=== PATIENT | male | born 1945 | race Hispanic/Latino ===

== ENCOUNTER 2022-09-09 09:50 | Inpatient (IN) | payer MEDICARE ==
[~2022-09-09] VITALS: Ht 172.7 cm; Wt 70.3 kg
[2022-09-09] MEDS ORDERED: LACTATED RINGERS 1000ML 1,000 ML IV ONE (10:30)
[2022-09-09] MEDS ORDERED: MECLIZINE HCL 25 MG TABLET PO ONE (10:30)
[2022-09-09 10:35] LABS: HEMATOCRIT 41.2 % (42-54); MEAN CORPUSCULAR HEMOGLOBIN 29.9 pg (27.0-33.0); MEAN CORPUSCULAR HGB CONC 34.5 g/dL (32.0-36.0); MEAN CORPUSCULAR VOLUME 86.7 fL (79-99); PLATELET COUNT (AUTO) 133 K/uL (130-400); RED BLOOD CELL COUNT(AUTO) 4.75 MIL/uL (4.50-6.20); RED CELL DISTRIBUTION WIDTH 13.4 % (11.0-15.5); WHITE BLOOD COUNT (AUTO) 8.8 K/uL (4.8-10.8)
[2022-09-09 10:50] LABS: CREATININE 0.8 mg/dL (0.5-1.5); POTASSIUM 3.7 mmol/L (3.5-5.1)
[2022-09-09 10:52] LABS: ALBUMIN 2.9 g/dL (3.5-5.0)
[2022-09-09 11:02] LABS: B-TYPE NATRIURETIC PEPTIDE 122 pg/mL (0-100); TOTAL PROTEIN, SERUM 5.7 g/dL (6.0-8.3)
[2022-09-09 11:34] LABS: BAND NEUTROPHILS % (MANUAL) 1 % (0-2); EOSINOPHILS % (MANUAL) 3 % (1-6); LYMPHOCYTES % (MANUAL) 4 % (22-44); MAN.DIFF COMMENT-IMPRESSION MANUAL DIF; MONOCYTES % (MANUAL) 8 % (2-9); PLATELET MORPHOLOGY COMMENT ADEQUATE; SEGMENTED NEUTROPHILS % 84 % (40-70)
[2022-09-09 11:47] LABS: ABG BASE EXCESS 0.4 mmol/L (-2.0-3.0); ABG HCO3 24.7 mmol/L (21.0-28.0); ABG OXYGEN SATURATION 91.2 % (95.0-99.0); ABG PCO2 39 mmHg (35-48)
[2022-09-09 13:23] LABS: APPEARANCE,URINE CLEAR (CLEAR); BILIRUBIN,URINE NEGATIVE (NEGATIVE); COLOR,URINE YELLOW (YELLOW); GLUCOSE, URINE (UA) NEGATIVE (NEGATIVE); KETONES,URINE 10 mg/dL (NEGATIVE); LEUKOCYTE ESTERASE ,URINE NEGATIVE Leu/uL (NEGATIVE); NITRATE,URINE NEGATIVE (NEGATIVE); OCCULT BLOOD,URINE SMALL (NEGATIVE); PH,URINE 5.5 (5.0-8.0); PROTEIN,URINE NEGATIVE (NEGATIVE)
[2022-09-09 13:38] LABS: MUCUS,URINE RARE LPF (None Seen); RBC,URINE 0-1 /HPF (0-1); WBC,URINE 0-1 /HPF (0-1)
[2022-09-09] MEDS ORDERED: ONDANSETRON 4MG INJ IV PRN (15:30)
[2022-09-09] MEDS ORDERED: ACETAMINOPHEN 325 MG TAB PO PRN ×2 (15:30)
[2022-09-09] MEDS ORDERED: GUAIFENESIN-DM 200/20 MG 10 ML PO PRN ×2 (15:30→20:30)
[2022-09-09] MEDS ORDERED: IPRATROPIUM 0.5 MG/2.5 ML INH IH PRN (15:30)
[2022-09-09] MEDS: 0.9%NACL 1000ML 1,000 ML IV SCH (15:50)
[2022-09-09] MEDS: AZITHROMYCIN 500MG+NS 250ML 250 ML IV SCH (15:50)
[2022-09-09] MEDS ORDERED: MECLIZINE HCL 25 MG TABLET PO PRN (20:30)
[2022-09-09] MEDS: FAMOTIDINE 20MG TAB PO SCH (21:05)
[2022-09-09] MEDS ORDERED: AMLO-258 PO (22:12)
[2022-09-09] MEDS ORDERED: METO-408 PO (22:12)
[2022-09-09] MEDS ORDERED: SERT-439 PO (22:12)
[2022-09-09] MEDS ORDERED: SENN-297 PO (22:12)
[2022-09-09] MEDS ORDERED: CARB1TAB35 PO ×2 (22:12)
[2022-09-09] MEDS ORDERED: BALS60OI TP (22:12)
[2022-09-09] MEDS ORDERED: LOVA20TA3 PO (22:12)
[2022-09-09] MEDS ORDERED: DONE5TAB33 PO (22:12)
[2022-09-09] MEDS ORDERED: CHOL2000 PO (22:12)
[2022-09-09 23:08] VITALS: BP_SYST 144
[2022-09-10] VITALS: BP_SYST 135; BP_SYST 142; BP_DIAS 58; BP_DIAS 74
[2022-09-10] MEDS: 0.9%NACL 1000ML 1,000 ML IV SCH ×2 (03:54→05:54)
[2022-09-10 04:00] VITALS: BP 150/58
[2022-09-10 05:49] LABS: BASOPHILS % (AUTO) 0.1 % (0.0-5.0); EOSINOPHILS % (AUTO) 0.1 % (0.0-8.0); HEMATOCRIT 41.2 % (42-54); LYMPHOCYTES % (AUTO) 7.3 % (21.0-51.0); MEAN CORPUSCULAR HEMOGLOBIN 29.7 pg (27.0-33.0); MEAN CORPUSCULAR VOLUME 87.3 fL (79-99); MONOCYTES % (AUTO) 6.8 % (3.0-13.0); NEUTROPHILS % (AUTO) 85.2 % (40.0-77.0); PLATELET COUNT (AUTO) 123 K/uL (130-400); RED BLOOD CELL COUNT(AUTO) 4.72 MIL/uL (4.50-6.20); RED CELL DISTRIBUTION WIDTH 13.4 % (11.0-15.5); WHITE BLOOD COUNT (AUTO) 7.7 K/uL (4.8-10.8)
[2022-09-10 06:23] LABS: ALBUMIN 2.6 g/dL (3.5-5.0); CREATININE 0.8 mg/dL (0.5-1.5); POTASSIUM 3.3 mmol/L (3.5-5.1); TOTAL PROTEIN, SERUM 5.3 g/dL (6.0-8.3)
[2022-09-10] MEDS: ALBUTEROL 0.083% 2.5 MG/3 ML INH IH SCH ×4 (06:23→23:34)
[2022-09-10 07:40] LABS: ABG BASE EXCESS -0.1 mmol/L (-2.0-3.0); ABG HCO3 23.2 mmol/L (21.0-28.0); ABG OXYGEN SATURATION 94.2 % (95.0-99.0); ABG PCO2 34 mmHg (35-48)
[2022-09-10] MEDS: FAMOTIDINE 20MG TAB PO SCH ×3 (08:42→20:06)
[2022-09-10] MEDS: ENOXAPARIN SODIUM 30 MG/0.3 ML SQ SCH ×2 (09:00→09:12)
[2022-09-10 09:04] VITALS: BP 132/54
[2022-09-10] MEDS ORDERED: POTASSIUM CHLORIDE 20MEQ/100ML 100 ML IV PRN (11:30)
[2022-09-10] MEDS ORDERED: MAGNESIUM 2GM PREMIX 50ML 50 ML IV PRN (11:30)
[2022-09-10] MEDS ORDERED: POTASSIUM CHLORIDE 10% ELIXIR 20 MEQ/15 ML UDCUP PO PRN (11:30)
[2022-09-10 11:56] VITALS: BP 142/79
[2022-09-10] MEDS: KCL 20 MEQ ERTAB PO PRN ×3 (13:51→22:57)
[2022-09-10] MEDS: AZITHROMYCIN 500MG+NS 250ML 250 ML IV SCH (15:23)
[2022-09-10 16:00] VITALS: BP 145/70
[2022-09-10 20:00] VITALS: BP 136/61
[2022-09-11] VITALS: BP 136/47
[2022-09-11 04:00] VITALS: BP 140/50
[2022-09-11 05:07] LABS: BASOPHILS % (AUTO) 0.2 % (0.0-5.0); HEMATOCRIT 40.4 % (42-54); LYMPHOCYTES % (AUTO) 9.4 % (21.0-51.0); MEAN CORPUSCULAR HEMOGLOBIN 29.3 pg (27.0-33.0); MEAN CORPUSCULAR HGB CONC 33.4 g/dL (32.0-36.0); MEAN CORPUSCULAR VOLUME 87.6 fL (79-99); MONOCYTES % (AUTO) 11.4 % (3.0-13.0); NEUTROPHILS % (AUTO) 78.6 % (40.0-77.0); PLATELET COUNT (AUTO) 115 K/uL (130-400); RED BLOOD CELL COUNT(AUTO) 4.61 MIL/uL (4.50-6.20); RED CELL DISTRIBUTION WIDTH 13.4 % (11.0-15.5); WHITE BLOOD COUNT (AUTO) 4.8 K/uL (4.8-10.8)
[2022-09-11 05:43] LABS: ALBUMIN 2.5 g/dL (3.5-5.0); CREATININE 0.8 mg/dL (0.5-1.5); POTASSIUM 3.6 mmol/L (3.5-5.1); TOTAL PROTEIN, SERUM 5.4 g/dL (6.0-8.3)
[2022-09-11] MEDS: ALBUTEROL 0.083% 2.5 MG/3 ML INH IH SCH ×4 (06:34→23:27)
[2022-09-11 08:00] VITALS: BP 143/59
[2022-09-11] MEDS: KCL 20 MEQ ERTAB PO PRN ×2 (10:21→12:43)
[2022-09-11] MEDS: ENOXAPARIN SODIUM 30 MG/0.3 ML SQ SCH (10:21)
[2022-09-11] MEDS: FAMOTIDINE 20MG TAB PO SCH ×2 (10:21→19:45)
[2022-09-11] MEDS: 0.9%NACL 1000ML 1,000 ML IV SCH (10:22)
[2022-09-11] MEDS: CHOLECALCIFEROL PO SCH (11:52)
[2022-09-11 11:56] VITALS: BP 127/64
[2022-09-11] MEDS: M.V.I. IV [ADULT] 10 ML, FOLIC ACID 1 MG, THIAMINE HCL 100 MG in 0.9%NACL 1000ML 1,000 ML IV SCH (12:59)
[2022-09-11] MEDS: AZITHROMYCIN 500MG+NS 250ML 250 ML IV SCH (15:48)
[2022-09-11 16:00] VITALS: BP_SYST 131; BP_SYST 151; BP_DIAS 113; BP_DIAS 69
[2022-09-11] MEDS: SIMVASTATIN 20 MG TABLET PO SCH (19:45)
[2022-09-11] MEDS: [UNRECOGNIZED DRUG - OTHER] PO SCH (19:46)
[2022-09-11] MEDS: DOCUSATE SODIUM PO SCH (19:46)
[2022-09-11] MEDS: SENNOSIDES PO SCH (19:46)
[2022-09-11 20:18] VITALS: BP 135/59
[2022-09-12] VITALS (8 sets, daily range): BP systolic 137–172; BP diastolic 56–76
[2022-09-12] MEDS: ALBUTEROL 0.083% 2.5 MG/3 ML INH IH SCH ×4 (06:20→23:23)
[2022-09-12] MEDS ORDERED: LACTULOSE 20 GM/30 ML UDCUP PO PRN (08:00)
[2022-09-12] MEDS: [UNRECOGNIZED DRUG - OTHER] PO SCH ×2 (09:00→21:00)
[2022-09-12] MEDS: DOCUSATE SODIUM PO SCH ×2 (09:00→21:00)
[2022-09-12] MEDS: SENNOSIDES PO SCH ×2 (09:00→21:00)
[2022-09-12] MEDS: CHOLECALCIFEROL PO SCH (09:00)
[2022-09-12] MEDS: AMLODIPINE 5 MG TAB PO SCH (10:33)
[2022-09-12] MEDS: ENOXAPARIN SODIUM 30 MG/0.3 ML SQ SCH (10:33)
[2022-09-12] MEDS: DONEPEZIL HCL 5 MG TAB PO SCH (10:34)
[2022-09-12] MEDS: SERTRALINE HCL 50 MG TABLET PO SCH (10:34)
[2022-09-12] MEDS: CARBIDOPA-LEVODOPA 25-100 TAB PO SCH (10:34)
[2022-09-12] MEDS: FAMOTIDINE 20MG TAB PO SCH ×2 (10:34→21:38)
[2022-09-12] MEDS: METOPROLOL SUCCINATE 25 MG TAB.SR.24H PO SCH (10:34)
[2022-09-12] MEDS: M.V.I. IV [ADULT] 10 ML, FOLIC ACID 1 MG, THIAMINE HCL 100 MG in 0.9%NACL 1000ML 1,000 ML IV SCH (11:26)
[2022-09-12] MEDS ORDERED: CEFTRIAXONE 1G VIAL IVPB SCH (13:00)
[2022-09-12] MEDS ORDERED: LACTATED RINGERS 1000ML 1,000 ML IV SCH (14:30)
[2022-09-12] MEDS: SIMVASTATIN 20 MG TABLET PO SCH (21:38)
[2022-09-13 04:00] VITALS: BP 147/57
[2022-09-13] MEDS: ALBUTEROL 0.083% 2.5 MG/3 ML INH IH SCH ×3 (06:16→23:39)
[2022-09-13] MEDS: FAMOTIDINE 20MG TAB PO SCH ×2 (07:59→20:29)
[2022-09-13] MEDS: DONEPEZIL HCL 5 MG TAB PO SCH (07:59)
[2022-09-13] MEDS: METOPROLOL SUCCINATE 25 MG TAB.SR.24H PO SCH (07:59)
[2022-09-13] MEDS: AMLODIPINE 5 MG TAB PO SCH (07:59)
[2022-09-13] MEDS: SERTRALINE HCL 50 MG TABLET PO SCH (07:59)
[2022-09-13] MEDS: LEVOFLOXACIN 750 MG TABLET PO SCH (07:59)
[2022-09-13 08:00] VITALS: BP 144/67
[2022-09-13] MEDS: DOCUSATE SODIUM PO SCH ×2 (08:00→20:23)
[2022-09-13] MEDS: CHOLECALCIFEROL PO SCH (08:00)
[2022-09-13] MEDS: [UNRECOGNIZED DRUG - OTHER] PO SCH ×2 (08:00→20:23)
[2022-09-13] MEDS: SENNOSIDES PO SCH ×2 (08:00→20:23)
[2022-09-13] MEDS: CARBIDOPA-LEVODOPA 25-100 TAB PO SCH (08:00)
[2022-09-13] MEDS: ENOXAPARIN SODIUM 30 MG/0.3 ML SQ SCH (08:01)
[2022-09-13] MEDS: M.V.I. IV [ADULT] 10 ML, FOLIC ACID 1 MG, THIAMINE HCL 100 MG in 0.9%NACL 1000ML 1,000 ML IV SCH (09:19)
[2022-09-13 11:35] VITALS: BP 135/63
[2022-09-13 16:00] VITALS: BP 146/76
[2022-09-13 19:00] VITALS: BP 124/64
[2022-09-13] MEDS: SIMVASTATIN 20 MG TABLET PO SCH (20:28)
[2022-09-14 01:02] VITALS: BP 155/62
[2022-09-14 05:30] VITALS: BP 158/55
[2022-09-14] MEDS: ALBUTEROL 0.083% 2.5 MG/3 ML INH IH SCH ×2 (06:32→11:01)
[2022-09-14 08:03] VITALS: BP 134/62
[2022-09-14] MEDS: SERTRALINE HCL 50 MG TABLET PO SCH (08:30)
[2022-09-14] MEDS: DONEPEZIL HCL 5 MG TAB PO SCH (08:30)
[2022-09-14] MEDS: AMLODIPINE 5 MG TAB PO SCH (08:30)
[2022-09-14] MEDS: LEVOFLOXACIN 750 MG TABLET PO SCH (08:31)
[2022-09-14] MEDS: DOCUSATE SODIUM PO SCH (08:31)
[2022-09-14] MEDS: SENNOSIDES PO SCH (08:31)
[2022-09-14] MEDS: [UNRECOGNIZED DRUG - OTHER] PO SCH (08:31)
[2022-09-14] MEDS: FAMOTIDINE 20MG TAB PO SCH (08:31)
[2022-09-14] MEDS: CHOLECALCIFEROL PO SCH (08:31)
[2022-09-14] MEDS: METOPROLOL SUCCINATE 25 MG TAB.SR.24H PO SCH (08:31)
[2022-09-14] MEDS: CARBIDOPA-LEVODOPA 25-100 TAB PO SCH (08:31)
[2022-09-14] MEDS: ENOXAPARIN SODIUM 30 MG/0.3 ML SQ SCH (08:32)
[2022-09-14] MEDS: M.V.I. IV [ADULT] 10 ML, FOLIC ACID 1 MG, THIAMINE HCL 100 MG in 0.9%NACL 1000ML 1,000 ML IV SCH (09:00)
[2022-09-14 11:38] VITALS: BP 127/57
[2022-09-14] MEDS ORDERED: ALBUTEROL 0.083% 2.5 MG/3 ML INH IH PRN (14:30)
[2022-09-14 16:10] LABS: BASOPHILS % (AUTO) 0.3 % (0.0-5.0); HEMATOCRIT 39.4 % (42-54); LYMPHOCYTES % (AUTO) 7.2 % (21.0-51.0); MEAN CORPUSCULAR HEMOGLOBIN 29.2 pg (27.0-33.0); MEAN CORPUSCULAR HGB CONC 34.3 g/dL (32.0-36.0); MEAN CORPUSCULAR VOLUME 85.3 fL (79-99); MONOCYTES % (AUTO) 6.4 % (3.0-13.0); NEUTROPHILS % (AUTO) 84.5 % (40.0-77.0); PLATELET COUNT (AUTO) 155 K/uL (130-400); RED BLOOD CELL COUNT(AUTO) 4.62 MIL/uL (4.50-6.20); RED CELL DISTRIBUTION WIDTH 13.5 % (11.0-15.5); WHITE BLOOD COUNT (AUTO) 6.9 K/uL (4.8-10.8)
[2022-09-14 16:17] LABS: CREATININE 0.7 mg/dL (0.5-1.5); POTASSIUM 3.4 mmol/L (3.5-5.1)
[2022-09-14 16:30] LABS: B-TYPE NATRIURETIC PEPTIDE 70 pg/mL (0-100)
[2022-09-14 16:52] VITALS: BP 132/76
[2022-09-14] MEDS ORDERED: CARBIDOPA-LEVODOPA 25-100 TAB PO SCH (21:00)
== END 2022-09-14 18:35 | DRG 177 ==
LOC: EDH 09:50 → EDHIP 15:26 → 4AH 21:43
PROVIDERS: ADMIT Internal Medicine; ATTEND Internal Medicine
DX: U07.1 COVID-19 (principal); J96.01 Acute respiratory failure with hypoxia; R53.2 Functional quadriplegia; E44.0 Moderate protein-calorie malnutrition; E11.9 Type 2 diabetes mellitus without complications; J44.9 Chronic obstructive pulmonary disease, unspecified; G20 Parkinson's disease; E78.00 Pure hypercholesterolemia, unspecified; I10 Essential (primary) hypertension; Z74.01 Bed confinement status; K59.00 Constipation, unspecified; Z79.899 Other long term (current) drug therapy; Z68.23 Body mass index [BMI] 23.0-23.9, adult; E78.5 Hyperlipidemia, unspecified
CPT/HCPCS: 36415; 36600; 70450; 70551; 71045; 80048; 80053; 81001; 82803; 83880; 84145; 84484; 85025; 87071; 87077; 87186; 87205; 87426; 87635; 87804; 93005; 93306; 93356; 94640; 94664; 97039; C9803; G0378; J0456; J1650; J3411; J3490; J7030; J7120

== ENCOUNTER 2023-09-08 12:45 | Emergency (ER) | payer MEDICARE ==
[~2023-09-08] VITALS: Ht 172.7 cm; Wt 63.5 kg
[~2023-09-08 12:45] MED LIST: AMLO-258 PO; BALS60OI TP; CARB1TAB35 PO; CHOL2000 PO; DONE5TAB33 PO; METO-408 PO; SENN-297 PO; SERT-439 PO
[2023-09-08 13:34] LABS: BASOPHILS # (AUTO) 0.02 K/uL (0.00-0.20); BASOPHILS % (AUTO) 0.2 % (0.0-5.0); HEMATOCRIT 42.4 % (42-54); IMMATURE GRANULOCYTE ABSOLUTE 0.05 K/uL (0-1); LYMPHOCYTES # (AUTO) 0.8 K/uL (1.0-4.8); MEAN CORPUSCULAR HEMOGLOBIN 30.1 pg (27.0-33.0); MEAN CORPUSCULAR HGB CONC 33.7 g/dL (32.0-36.0); MEAN CORPUSCULAR VOLUME 89.3 fL (79-99); MONOCYTES # (AUTO) 0.7 K/uL (0.1-1.0); MONOCYTES % (AUTO) 7.3 % (3.0-13.0); PLATELET COUNT (AUTO) 188 K/uL (130-400); RED BLOOD CELL COUNT(AUTO) 4.75 MIL/uL (4.50-6.20); RED CELL DISTRIBUTION WIDTH 14.2 % (11.0-15.5); WHITE BLOOD COUNT (AUTO) 9.7 K/uL (4.8-10.8)
[2023-09-08 13:39] LABS: CREATININE 0.8 mg/dL (0.5-1.3); POTASSIUM 3.7 mmol/L (3.5-5.1)
[2023-09-08 13:41] LABS: APPEARANCE,URINE CLEAR (CLEAR); BILIRUBIN,URINE NEGATIVE (NEGATIVE); COLOR,URINE YELLOW (YELLOW); GLUCOSE, URINE (UA) NEGATIVE (NEGATIVE); KETONES,URINE 5 mg/dL (NEGATIVE); LEUKOCYTE ESTERASE ,URINE 25 Leu/uL (NEGATIVE); NITRATE,URINE NEGATIVE (NEGATIVE); OCCULT BLOOD,URINE NEGATIVE (NEGATIVE); PH,URINE 5.5 (5.0-8.0); PROTEIN,URINE 10 mg/dL (NEGATIVE)
[2023-09-08 13:42] LABS: ADD UA MICROSCOPIC YES
[2023-09-08 13:44] LABS: CALCIUM OXALATE CRYSTALS,UR RARE /LPF (None Seen); SQUAMOUS EPITHELIAL CELL,UR RARE /HPF (0-2)
[2023-09-08 13:44] LABS: ALBUMIN 3.6 g/dL (3.5-5.0); BILIRUBIN,TOTAL 0.8 mg/dL (0.2-1.0); TOTAL PROTEIN, SERUM 6.4 g/dL (6.0-8.3)
[2023-09-08 15:50] VITALS: BP 127/66; PULSE 66; RESP 18; O2SAT 99
== END 2023-09-08 16:03 | disposition home or self-care (01) ==
LOC: EDH 12:45
DX: S00.83XA Contusion of other part of head, initial encounter (principal); I10 Essential (primary) hypertension; E78.00 Pure hypercholesterolemia, unspecified; G20.A1 Parkinson's disease without dyskinesia, without mention of fluctuations; J44.9 Chronic obstructive pulmonary disease, unspecified; J84.10 Pulmonary fibrosis, unspecified; K82.8 Other specified diseases of gallbladder; M47.812 Spondylosis without myelopathy or radiculopathy, cervical region; Z79.899 Other long term (current) drug therapy; Z90.89 Acquired absence of other organs; Z98.890 Other specified postprocedural states; W18.39XA Other fall on same level, initial encounter; Y93.89 Activity, other specified; Y92.89 Other specified places as the place of occurrence of the external cause; Y99.8 Other external cause status
CPT/HCPCS: 36415; 70450; 71250; 72125; 74176; 80053; 81001; 84484; 85025; 93005

== ENCOUNTER 2023-11-06 00:45 | Emergency (ER) | payer MEDICARE ==
[~2023-11-06] VITALS: Ht 172.7 cm; Wt 59.4 kg
[2023-11-06 01:50] LABS: BASOPHILS # (AUTO) 0.02 K/uL (0.00-0.20); BASOPHILS % (AUTO) 0.2 % (0.0-5.0); EOSINOPHILS # (AUTO) 0.19 K/uL (0.00-0.70); EOSINOPHILS % (AUTO) 1.8 % (0.0-8.0); HEMATOCRIT 37.7 % (42-54); IMMATURE GRANULOCYTE ABSOLUTE 0.05 K/uL (0-1); LYMPHOCYTES # (AUTO) 0.7 K/uL (1.0-4.8); LYMPHOCYTES % (AUTO) 6.5 % (21.0-51.0); MEAN CORPUSCULAR HEMOGLOBIN 29.6 pg (27.0-33.0); MEAN CORPUSCULAR HGB CONC 33.4 g/dL (32.0-36.0); MEAN CORPUSCULAR VOLUME 88.5 fL (79-99); MONOCYTES # (AUTO) 1.1 K/uL (0.1-1.0); MONOCYTES % (AUTO) 10.2 % (3.0-13.0); NEUTROPHILS # (AUTO) 8.3 K/uL (1.8-7.7); NEUTROPHILS % (AUTO) 80.8 % (40.0-77.0); PLATELET COUNT (AUTO) 166 K/uL (130-400); RED BLOOD CELL COUNT(AUTO) 4.26 MIL/uL (4.50-6.20); RED CELL DISTRIBUTION WIDTH 13.6 % (11.0-15.5); WHITE BLOOD COUNT (AUTO) 10.3 K/uL (4.8-10.8)
[2023-11-06] MEDS: ONDANSETRON 4MG INJ IVP ONE (01:54)
[2023-11-06] MEDS: 0.9%NACL 1000ML 1,000 ML IV ONE (01:55)
[2023-11-06] MEDS: MORPHINE 2 MG SYG IVP ONE (01:55)
[2023-11-06 02:01] LABS: INR 1.18 (0.85-1.15); PROTHROMBIN TIME 12.6 SEC (9.6-11.6)
[2023-11-06 02:02] LABS: PARTIAL THROMBOPLASTIN TIME 31.6 SEC (26.3-35.5)
[2023-11-06 02:07] LABS: CREATININE 1.3 mg/dL (0.5-1.3); POTASSIUM 4.1 mmol/L (3.5-5.1)
[2023-11-06 02:11] LABS: ALBUMIN 3.1 g/dL (3.5-5.0); BILIRUBIN,TOTAL 0.9 mg/dL (0.2-1.0); TOTAL PROTEIN, SERUM 6.1 g/dL (6.0-8.3)
[2023-11-06 04:03] LABS: APPEARANCE,URINE CLEAR (CLEAR); BILIRUBIN,URINE NEGATIVE (NEGATIVE); COLOR,URINE YELLOW (YELLOW); GLUCOSE, URINE (UA) NEGATIVE (NEGATIVE); KETONES,URINE 40 mg/dL (NEGATIVE); LEUKOCYTE ESTERASE ,URINE NEGATIVE Leu/uL (NEGATIVE); NITRATE,URINE NEGATIVE (NEGATIVE); OCCULT BLOOD,URINE LARGE (NEGATIVE); PH,URINE 5.5 (5.0-8.0); PROTEIN,URINE 20 mg/dL (NEGATIVE)
[2023-11-06 04:05] LABS: ADD UA MICROSCOPIC YES
[2023-11-06 04:10] LABS: MUCUS,URINE RARE LPF (None Seen); OTHER CASTS, URINE 1 /LPF (None Seen); RBC,URINE 51-100 /HPF (0-1); UNCLASSIFIED CRYSTAL 4 /HPF (None Seen); YEAST,URINE BUDDING RARE /HPF (None Seen)
[2023-11-06 04:24] VITALS: BP 178/61; PULSE 68; RESP 12; O2SAT 97
[2023-11-06] MEDS ORDERED: TAMS-1 PO (04:46)
[2023-11-06] MEDS ORDERED: TAMSULOSIN HCL 0.4 MG CAP.ER.24H PO ONE (05:00)
== END 2023-11-06 06:24 | disposition home or self-care (01) ==
LOC: EDH 00:45
DX: N13.2 Hydronephrosis with renal and ureteral calculous obstruction (principal); J44.9 Chronic obstructive pulmonary disease, unspecified; E78.00 Pure hypercholesterolemia, unspecified; I10 Essential (primary) hypertension; G20.A1 Parkinson's disease without dyskinesia, without mention of fluctuations; I63.9 Cerebral infarction, unspecified; Z79.899 Other long term (current) drug therapy
CPT/HCPCS: 99285; 74176; 96374; 96361; 96375; 82550; 84484; 80053; 83690; 85025; 85610; 85730; 87086; 81001; 36415; 93005; J2270; J7030; J2405

== ENCOUNTER 2023-11-22 11:16 | Inpatient (IN) | payer MEDICARE ==
[~2023-11-22] VITALS: Ht 172.7 cm; Wt 58.1 kg
[~2023-11-22 11:16] MED LIST changes: +TAMS-1 PO
[2023-11-22] MEDS: ondanSETRON 4MG INJ IVP ONE (11:38)
[2023-11-22] MEDS: FAMOTIDINE 20MG VIAL IV ONE (11:38)
[2023-11-22] MEDS: morPHINE 2 MG SYG IVP ONE (11:38)
[2023-11-22 11:41] LABS: BASOPHILS # (AUTO) 0.04 K/uL (0.00-0.20); BASOPHILS % (AUTO) 0.4 % (0.0-5.0); EOSINOPHILS # (AUTO) 0.17 K/uL (0.00-0.70); EOSINOPHILS % (AUTO) 1.8 % (0.0-8.0); HEMATOCRIT 37.6 % (42-54); IMMATURE GRANULOCYTE ABSOLUTE 0.05 K/uL (0-1); LYMPHOCYTES # (AUTO) 0.7 K/uL (1.0-4.8); MEAN CORPUSCULAR HEMOGLOBIN 29.6 pg (27.0-33.0); MEAN CORPUSCULAR HGB CONC 33.5 g/dL (32.0-36.0); MEAN CORPUSCULAR VOLUME 88.5 fL (79-99); MONOCYTES # (AUTO) 0.6 K/uL (0.1-1.0); MONOCYTES % (AUTO) 6.1 % (3.0-13.0); NEUTROPHILS # (AUTO) 7.9 K/uL (1.8-7.7); NEUTROPHILS % (AUTO) 84.2 % (40.0-77.0); PLATELET COUNT (AUTO) 234 K/uL (130-400); RED BLOOD CELL COUNT(AUTO) 4.25 MIL/uL (4.50-6.20); RED CELL DISTRIBUTION WIDTH 13.3 % (11.0-15.5); WHITE BLOOD COUNT (AUTO) 9.4 K/uL (4.8-10.8)
[2023-11-22 11:53] LABS: ALBUMIN 3.1 g/dL (3.5-5.0); BILIRUBIN,DIRECT 0.2 mg/dL (0.0-0.3); BILIRUBIN,TOTAL 0.5 mg/dL (0.2-1.0); POTASSIUM 3.9 mmol/L (3.5-5.1); TOTAL PROTEIN, SERUM 6.5 g/dL (6.0-8.3)
[2023-11-22 11:57] LABS: INR 1.19 (0.85-1.15); PROTHROMBIN TIME 12.7 SEC (9.6-11.6)
[2023-11-22 11:59] LABS: PARTIAL THROMBOPLASTIN TIME 29.5 SEC (26.3-35.5)
[2023-11-22 12:16] LABS: APPEARANCE,URINE CLEAR (CLEAR); BILIRUBIN,URINE NEGATIVE (NEGATIVE); COLOR,URINE LIGHT-YELLOW (YELLOW); GLUCOSE, URINE (UA) NEGATIVE (NEGATIVE); KETONES,URINE NEGATIVE (NEGATIVE); LEUKOCYTE ESTERASE ,URINE 250 Leu/uL (NEGATIVE); NITRATE,URINE NEGATIVE (NEGATIVE); OCCULT BLOOD,URINE SMALL (NEGATIVE); PH,URINE 6.5 (5.0-8.0); PROTEIN,URINE NEGATIVE (NEGATIVE); UROBILINOGEN,URINE 0.2 mg/dL (0.2-1.0)
[2023-11-22 12:45] LABS: BACTERIA,URINE FEW /HPF (None Seen); MUCUS,URINE RARE LPF (None Seen); WBC,URINE 26-50 /HPF (0-1)
[2023-11-22] MEDS: cefTRIAXone 1G VIAL IVPB ONE (12:54)
[2023-11-22] MEDS ORDERED: ketOROlac 15MG/ML VIAL (15MG/ML) IM PRN (14:00)
[2023-11-22] MEDS ORDERED: morPHINE 2 MG SYG IVP PRN (14:00)
[2023-11-22] MEDS ORDERED: cefTRIAXone 1G VIAL IVPB SCH (14:00)
[2023-11-22] MEDS: tamSULOsin HCL 0.4 MG CAP.ER.24H PO ONE (14:05)
[2023-11-22] MEDS: 0.9%NACL 1000ML 1,000 ML IV SCH (14:06)
[2023-11-22] MEDS ORDERED: BUDE10.7 IH (14:33)
[2023-11-22] MEDS ORDERED: TRAM50TA4 PO (14:33)
[2023-11-22] MEDS ORDERED: SIMV-43 PO (14:33)
[2023-11-22] MEDS ORDERED: AEC81 PO (14:33)
[2023-11-22] MEDS ORDERED: PoTASSium chloRIDE 20MEQ/100ML 100 ML IV PRN (17:00)
[2023-11-22 17:07] VITALS: BP 159/79; PULSE 65; RESP 16; TEMP 98.7
[2023-11-22 17:10] VITALS: O2SAT 98
[2023-11-22 17:15] VITALS: O2SAT 98
[2023-11-22 19:00] VITALS: BP 133/63; PULSE 62; RESP 19; TEMP 98.4
[2023-11-22] MEDS: simVASTatin 20 MG TABLET PO SCH (20:41)
[2023-11-22] MEDS: FAMOTIDINE 20MG TAB PO SCH (20:41)
[2023-11-22] MEDS: CARBIDOPA-LEVODOPA 25-100 TAB PO SCH (20:41)
[2023-11-22 23:00] VITALS: BP 153/74; PULSE 62; RESP 19; TEMP 98
[2023-11-23] VITALS (9 sets, daily range): BP systolic 127–177; BP diastolic 59–90; PULSE 54–64; RESP 18–19; TEMP 98–98.4; O2SAT 97–98
[2023-11-23 05:19] LABS: BASOPHILS # (AUTO) 0.05 K/uL (0.00-0.20); BASOPHILS % (AUTO) 0.7 % (0.0-5.0); EOSINOPHILS # (AUTO) 0.22 K/uL (0.00-0.70); EOSINOPHILS % (AUTO) 3.2 % (0.0-8.0); HEMATOCRIT 35.9 % (42-54); IMMATURE GRANULOCYTE ABSOLUTE 0.03 K/uL (0-1); LYMPHOCYTES # (AUTO) 0.9 K/uL (1.0-4.8); LYMPHOCYTES % (AUTO) 13.2 % (21.0-51.0); MEAN CORPUSCULAR HEMOGLOBIN 29.5 pg (27.0-33.0); MEAN CORPUSCULAR HGB CONC 33.7 g/dL (32.0-36.0); MEAN CORPUSCULAR VOLUME 87.6 fL (79-99); MONOCYTES # (AUTO) 0.5 K/uL (0.1-1.0); MONOCYTES % (AUTO) 6.5 % (3.0-13.0); NEUTROPHILS # (AUTO) 5.2 K/uL (1.8-7.7); PLATELET COUNT (AUTO) 214 K/uL (130-400); RED CELL DISTRIBUTION WIDTH 13.2 % (11.0-15.5); WHITE BLOOD COUNT (AUTO) 6.9 K/uL (4.8-10.8)
[2023-11-23 05:45] LABS: MAGNESIUM 1.5 mg/dL (1.80-2.40); POTASSIUM 3.5 mmol/L (3.5-5.1)
[2023-11-23] MEDS: MAGNESIUM 2GM PREMIX 50ML 50 ML IV PRN (06:05)
[2023-11-23] MEDS: Budesonide/Glycopyr/Formoterol (Breztri Aerosphere Inhaler) IH SCH (09:00)
[2023-11-23] MEDS: Cholecalciferol (Vitamin D3) 1 CAP PO SCH (09:00)
[2023-11-23] MEDS: CARBIDOPA-LEVODOPA 25-100 TAB PO SCH (09:12)
[2023-11-23] MEDS: SERTraline HCL 50 MG TABLET PO SCH (09:12)
[2023-11-23] MEDS: doNEPEZil HCL 5 MG TAB PO SCH (09:12)
[2023-11-23] MEDS: tamSULOsin HCL 0.4 MG CAP.ER.24H PO SCH (09:13)
[2023-11-23] MEDS: ASPIRIN 81 MG EC TAB PO SCH (09:13)
[2023-11-23] MEDS: cefTRIAXone 1G VIAL IVPB SCH (14:41)
[2023-11-23] MEDS ORDERED: PHARMACY COMMUNICATION MISC SCH (15:30)
[2023-11-23] MEDS: hydrALAZine 20MG/ML VIAL IV PRN (23:59)
[2023-11-24] VITALS (7 sets, daily range): BP systolic 127–158; BP diastolic 69–90; PULSE 61–83; RESP 17–18; TEMP 97.3–99.2; O2SAT 98
[2023-11-24 05:55] LABS: BASOPHILS # (AUTO) 0.06 K/uL (0.00-0.20); BASOPHILS % (AUTO) 0.7 % (0.0-5.0); EOSINOPHILS # (AUTO) 0.49 K/uL (0.00-0.70); EOSINOPHILS % (AUTO) 5.4 % (0.0-8.0); HEMATOCRIT 40.3 % (42-54); IMMATURE GRANULOCYTE ABSOLUTE 0.02 K/uL (0-1); LYMPHOCYTES # (AUTO) 0.8 K/uL (1.0-4.8); LYMPHOCYTES % (AUTO) 9.2 % (21.0-51.0); MEAN CORPUSCULAR HEMOGLOBIN 29.7 pg (27.0-33.0); MEAN CORPUSCULAR VOLUME 87.2 fL (79-99); MONOCYTES # (AUTO) 0.5 K/uL (0.1-1.0); MONOCYTES % (AUTO) 5.4 % (3.0-13.0); NEUTROPHILS # (AUTO) 7.1 K/uL (1.8-7.7); NEUTROPHILS % (AUTO) 79.1 % (40.0-77.0); PLATELET COUNT (AUTO) 243 K/uL (130-400); RED BLOOD CELL COUNT(AUTO) 4.62 MIL/uL (4.50-6.20); RED CELL DISTRIBUTION WIDTH 12.9 % (11.0-15.5)
[2023-11-24 06:18] LABS: ALANINE AMINOTRANSFERASE < 6 U/L (12-78); ALBUMIN 3.2 g/dL (3.5-5.0); ASPARTATE AMINOTRANSFERASE 11 U/L (10-37); CARBON DIOXIDE 27 mmol/L (21-32); CHLORIDE 105 mmol/L (101-111); CREATININE 0.9 mg/dL (0.5-1.3); GLOMERULAR FILTR. RATE CALC 87 mL/min (>90); GLUCOSE,RANDOM 79 mg/dL (70-105); POTASSIUM 3.4 mmol/L (3.5-5.1); SODIUM SERUM 143 mmol/L (136-145); TOTAL PROTEIN, SERUM 6.6 g/dL (6.0-8.3); UREA NITROGEN, BLOOD 16 mg/dL (7-18)
[2023-11-24] MEDS ORDERED: PHARMACY COMMUNICATION MISC SCH (12:00)
[2023-11-24] MEDS ORDERED: LIDO 2% VISC 30ML+MAG/AL/SIMETH 30ML+DICYCLOMINE 20MG 10ML PO PRN (12:30)
[2023-11-24] MEDS ORDERED: COMPOUND PO MISCELLANEOUS 1 EACH MISC MISC PRN (12:30)
[2023-11-24] MEDS ORDERED: IOHEXOL 350 MG/ML 100ML INFUS..BTL IV ONE (14:38)
[2023-11-25] VITALS (9 sets, daily range): BP systolic 147–170; BP diastolic 60–80; PULSE 59–69; RESP 17–20; TEMP 98.2–98.8; O2SAT 98–99
[2023-11-25 07:57] LABS: BASOPHILS # (AUTO) 0.04 K/uL (0.00-0.20); BASOPHILS % (AUTO) 0.4 % (0.0-5.0); EOSINOPHILS # (AUTO) 0.27 K/uL (0.00-0.70); EOSINOPHILS % (AUTO) 2.8 % (0.0-8.0); IMMATURE GRANULOCYTE ABSOLUTE 0.05 K/uL (0-1); LYMPHOCYTES # (AUTO) 0.8 K/uL (1.0-4.8); LYMPHOCYTES % (AUTO) 7.8 % (21.0-51.0); MEAN CORPUSCULAR HEMOGLOBIN 29.4 pg (27.0-33.0); MEAN CORPUSCULAR HGB CONC 33.9 g/dL (32.0-36.0); MEAN CORPUSCULAR VOLUME 86.7 fL (79-99); MONOCYTES # (AUTO) 0.5 K/uL (0.1-1.0); MONOCYTES % (AUTO) 5.2 % (3.0-13.0); NEUTROPHILS # (AUTO) 8.2 K/uL (1.8-7.7); NEUTROPHILS % (AUTO) 83.3 % (40.0-77.0); PLATELET COUNT (AUTO) 249 K/uL (130-400); RED BLOOD CELL COUNT(AUTO) 4.73 MIL/uL (4.50-6.20); RED CELL DISTRIBUTION WIDTH 12.9 % (11.0-15.5); WHITE BLOOD COUNT (AUTO) 9.8 K/uL (4.8-10.8)
[2023-11-25 08:25] LABS: ALBUMIN 3.4 g/dL (3.5-5.0); ASPARTATE AMINOTRANSFERASE 8 U/L (10-37); BILIRUBIN,TOTAL 0.9 mg/dL (0.2-1.0); CARBON DIOXIDE 25 mmol/L (21-32); CHLORIDE 106 mmol/L (101-111); GLOMERULAR FILTR. RATE CALC 77 mL/min (>90); GLUCOSE,RANDOM 82 mg/dL (70-105); POTASSIUM 3.8 mmol/L (3.5-5.1); SODIUM SERUM 141 mmol/L (136-145); UREA NITROGEN, BLOOD 19 mg/dL (7-18)
[2023-11-25 08:26] LABS: ALANINE AMINOTRANSFERASE < 6 U/L (12-78)
[2023-11-25] MEDS ORDERED: PoTASSium chloRIDE 20MEQ/100ML 100 ML IV PRN (12:30)
[2023-11-25] MEDS: PoTASSium chloRIDE 20MEQ ER 20 MEQ ERTAB PO PRN (13:11)
[2023-11-26] VITALS (9 sets, daily range): BP systolic 138–182; BP diastolic 63–87; PULSE 55–99; RESP 18–20; TEMP 97.1–98.8; O2SAT 97
[2023-11-26 16:19] LABS: ABG BASE EXCESS -3.7 mmol/L (-2.0-3.0); ABG HCO3 19.5 mmol/L (21.0-28.0); ABG PCO2 31 mmHg (35-48); ABG PH 7.419 (7.350-7.450); DEVICE COMMENT RR OSCAR; PO2, ARTERIAL BG 88.1 mmHg (83.0-108.0); VENT MODE, BG RA (ROOM AIR)
[2023-11-26 20:15] LABS: BASOPHILS # (AUTO) 0.03 K/uL (0.00-0.20); BASOPHILS % (AUTO) 0.3 % (0.0-5.0); EOSINOPHILS # (AUTO) 0.13 K/uL (0.00-0.70); EOSINOPHILS % (AUTO) 1.3 % (0.0-8.0); HEMATOCRIT 39.2 % (42-54); IMMATURE GRANULOCYTE ABSOLUTE 0.04 K/uL (0-1); LYMPHOCYTES # (AUTO) 0.7 K/uL (1.0-4.8); LYMPHOCYTES % (AUTO) 6.9 % (21.0-51.0); MEAN CORPUSCULAR HEMOGLOBIN 29.6 pg (27.0-33.0); MEAN CORPUSCULAR HGB CONC 33.4 g/dL (32.0-36.0); MEAN CORPUSCULAR VOLUME 88.7 fL (79-99); MONOCYTES # (AUTO) 0.6 K/uL (0.1-1.0); MONOCYTES % (AUTO) 5.4 % (3.0-13.0); NEUTROPHILS # (AUTO) 8.8 K/uL (1.8-7.7); NEUTROPHILS % (AUTO) 85.7 % (40.0-77.0); PLATELET COUNT (AUTO) 207 K/uL (130-400); RED BLOOD CELL COUNT(AUTO) 4.42 MIL/uL (4.50-6.20); WHITE BLOOD COUNT (AUTO) 10.3 K/uL (4.8-10.8)
[2023-11-26 20:29] LABS: ALBUMIN 3.3 g/dL (3.5-5.0); ASPARTATE AMINOTRANSFERASE 9 U/L (10-37); BILIRUBIN,TOTAL 0.8 mg/dL (0.2-1.0); CARBON DIOXIDE 23 mmol/L (21-32); CHLORIDE 107 mmol/L (101-111); GLOMERULAR FILTR. RATE CALC 77 mL/min (>90); GLUCOSE,RANDOM 83 mg/dL (70-105); POTASSIUM 3.6 mmol/L (3.5-5.1); SODIUM SERUM 142 mmol/L (136-145); TOTAL PROTEIN, SERUM 6.5 g/dL (6.0-8.3); UREA NITROGEN, BLOOD 19 mg/dL (7-18)
[2023-11-26 20:31] LABS: ALANINE AMINOTRANSFERASE < 6 U/L (12-78)
[2023-11-27] VITALS (26 sets, daily range): BP systolic 110–170; BP diastolic 43–92; PULSE 60–87; RESP 13–20; TEMP 97.5–98.7; O2SAT 98
[2023-11-27 04:34] LABS: BASOPHILS # (AUTO) 0.03 K/uL (0.00-0.20); BASOPHILS % (AUTO) 0.3 % (0.0-5.0); EOSINOPHILS % (AUTO) 3.4 % (0.0-8.0); HEMATOCRIT 35.2 % (42-54); IMMATURE GRANULOCYTE ABSOLUTE 0.04 K/uL (0-1); LYMPHOCYTES # (AUTO) 0.9 K/uL (1.0-4.8); LYMPHOCYTES % (AUTO) 9.6 % (21.0-51.0); MEAN CORPUSCULAR HEMOGLOBIN 29.3 pg (27.0-33.0); MEAN CORPUSCULAR HGB CONC 34.1 g/dL (32.0-36.0); MEAN CORPUSCULAR VOLUME 85.9 fL (79-99); MONOCYTES # (AUTO) 0.7 K/uL (0.1-1.0); MONOCYTES % (AUTO) 7.6 % (3.0-13.0); NEUTROPHILS % (AUTO) 78.7 % (40.0-77.0); PLATELET COUNT (AUTO) 193 K/uL (130-400); RED CELL DISTRIBUTION WIDTH 12.9 % (11.0-15.5); WHITE BLOOD COUNT (AUTO) 8.9 K/uL (4.8-10.8)
[2023-11-27 05:03] LABS: ALBUMIN 2.9 g/dL (3.5-5.0); ASPARTATE AMINOTRANSFERASE 8 U/L (10-37); BILIRUBIN,TOTAL 0.8 mg/dL (0.2-1.0); CARBON DIOXIDE 23 mmol/L (21-32); CHLORIDE 109 mmol/L (101-111); CREATININE 0.8 mg/dL (0.5-1.3); GLOMERULAR FILTR. RATE CALC 91 mL/min (>90); GLUCOSE,RANDOM 73 mg/dL (70-105); POTASSIUM 3.9 mmol/L (3.5-5.1); SODIUM SERUM 144 mmol/L (136-145); TOTAL PROTEIN, SERUM 5.9 g/dL (6.0-8.3); UREA NITROGEN, BLOOD 16 mg/dL (7-18)
[2023-11-27 05:04] LABS: ALANINE AMINOTRANSFERASE < 6 U/L (12-78)
[2023-11-27] MEDS ORDERED: MIDAZOLAM HCL 1 MG/ML 2ML VIAL ONE (08:17)
[2023-11-27] MEDS ORDERED: FENTanyl CITRate PF 50 MCG/1 ML 2ML VIAL ONE ×2 (08:18→11:08)
[2023-11-27] MEDS ORDERED: rocuRONium bROMide 10MG/1ML 5ML VL ONE (11:08)
[2023-11-27] MEDS ORDERED: ondanSETRON 4MG INJ ONE (11:08)
[2023-11-27] MEDS ORDERED: proPOFol 10 MG/ML 20ML VIAL IV ONE (11:19)
[2023-11-27] MEDS: BUPIvacaine/PF 0.25% 30ML VIAL IJ ONE (11:58)
[2023-11-27] MEDS ORDERED: NEOSTIGMINE METHYLSULFATE 1MG/ML IV ONE (12:31)
[2023-11-27] MEDS ORDERED: GLYCOPYRROLATE 0.2 MG/ML 5 ML VIAL ONE (12:31)
[2023-11-28] VITALS (8 sets, daily range): BP systolic 127–185; BP diastolic 64–77; PULSE 67–74; RESP 16–20; TEMP 97.4–98.3; O2SAT 98
[2023-11-28] MEDS: morPHINE 2 MG SYG IVP PRN (00:37)
[2023-11-28 05:49] LABS: HEMATOCRIT 34.7 % (42-54); MEAN CORPUSCULAR HEMOGLOBIN 29.3 pg (27.0-33.0); MEAN CORPUSCULAR HGB CONC 33.7 g/dL (32.0-36.0); RED BLOOD CELL COUNT(AUTO) 3.99 MIL/uL (4.50-6.20); RED CELL DISTRIBUTION WIDTH 12.9 % (11.0-15.5)
[2023-11-28 06:07] LABS: ALBUMIN 2.7 g/dL (3.5-5.0); ASPARTATE AMINOTRANSFERASE 8 U/L (10-37); BILIRUBIN,TOTAL 0.8 mg/dL (0.2-1.0); CARBON DIOXIDE 25 mmol/L (21-32); CHLORIDE 110 mmol/L (101-111); CREATININE 0.7 mg/dL (0.5-1.3); GLOMERULAR FILTR. RATE CALC 94 mL/min (>90); GLUCOSE,RANDOM 82 mg/dL (70-105); POTASSIUM 3.2 mmol/L (3.5-5.1); SODIUM SERUM 145 mmol/L (136-145); TOTAL PROTEIN, SERUM 5.6 g/dL (6.0-8.3); UREA NITROGEN, BLOOD 8 mg/dL (7-18)
[2023-11-28 06:09] LABS: ALANINE AMINOTRANSFERASE < 6 U/L (12-78)
[2023-11-28] MEDS: PoTASSium chl 10% ELIXIR 20MEQ 20 MEQ/15 ML UDCUP PO PRN (07:19)
[2023-11-28] MEDS: acetaMINOPHEN WITH coDEINE 1 TAB TAB PO PRN (15:06)
[2023-11-28] MEDS: CARBIDOPA-LEVODOPA 25-100 TAB PO SCH (18:44)
[2023-11-29] VITALS (9 sets, daily range): BP systolic 127–185; BP diastolic 63–84; PULSE 68–94; RESP 16–20; TEMP 97.5–98.6; O2SAT 95–97
[2023-11-29 05:32] LABS: BASOPHILS # (AUTO) 0.03 K/uL (0.00-0.20); BASOPHILS % (AUTO) 0.3 % (0.0-5.0); EOSINOPHILS # (AUTO) 0.14 K/uL (0.00-0.70); EOSINOPHILS % (AUTO) 1.4 % (0.0-8.0); HEMATOCRIT 34.4 % (42-54); IMMATURE GRANULOCYTE ABSOLUTE 0.04 K/uL (0-1); LYMPHOCYTES # (AUTO) 0.6 K/uL (1.0-4.8); MEAN CORPUSCULAR HEMOGLOBIN 28.9 pg (27.0-33.0); MEAN CORPUSCULAR HGB CONC 33.4 g/dL (32.0-36.0); MEAN CORPUSCULAR VOLUME 86.4 fL (79-99); MONOCYTES # (AUTO) 0.8 K/uL (0.1-1.0); MONOCYTES % (AUTO) 7.9 % (3.0-13.0); NEUTROPHILS # (AUTO) 8.5 K/uL (1.8-7.7); PLATELET COUNT (AUTO) 158 K/uL (130-400); RED BLOOD CELL COUNT(AUTO) 3.98 MIL/uL (4.50-6.20); RED CELL DISTRIBUTION WIDTH 12.9 % (11.0-15.5); WHITE BLOOD COUNT (AUTO) 10.2 K/uL (4.8-10.8)
[2023-11-29 05:47] LABS: CREATININE 1.1 mg/dL (0.5-1.3)
[2023-11-29] MEDS: doCUSate SODIUM 100 MG CAP PO SCH (20:21)
[2023-11-30] VITALS (9 sets, daily range): BP systolic 137–173; BP diastolic 60–91; PULSE 77–87; RESP 18–20; TEMP 97.6–98.6; O2SAT 94–96
[2023-11-30 05:59] LABS: BASOPHILS # (AUTO) 0.02 K/uL (0.00-0.20); BASOPHILS % (AUTO) 0.2 % (0.0-5.0); EOSINOPHILS # (AUTO) 0.23 K/uL (0.00-0.70); EOSINOPHILS % (AUTO) 2.9 % (0.0-8.0); HEMATOCRIT 30.9 % (42-54); IMMATURE GRANULOCYTE ABSOLUTE 0.03 K/uL (0-1); LYMPHOCYTES # (AUTO) 0.5 K/uL (1.0-4.8); LYMPHOCYTES % (AUTO) 6.7 % (21.0-51.0); MEAN CORPUSCULAR HEMOGLOBIN 29.6 pg (27.0-33.0); MONOCYTES # (AUTO) 0.6 K/uL (0.1-1.0); MONOCYTES % (AUTO) 7.7 % (3.0-13.0); NEUTROPHILS # (AUTO) 6.6 K/uL (1.8-7.7); NEUTROPHILS % (AUTO) 82.1 % (40.0-77.0); PLATELET COUNT (AUTO) 157 K/uL (130-400); RED BLOOD CELL COUNT(AUTO) 3.55 MIL/uL (4.50-6.20); WHITE BLOOD COUNT (AUTO) 8.1 K/uL (4.8-10.8)
[2023-11-30 06:12] LABS: POTASSIUM 3.5 mmol/L (3.5-5.1)
[2023-11-30] MEDS: polyETHYLene GLYCol 3350 17 GM POWD.PACK PO SCH (09:11)
[2023-12-01] VITALS (7 sets, daily range): BP systolic 157–175; BP diastolic 76–101; PULSE 57–90; RESP 17–19; TEMP 97.8–98.9; O2SAT 95–96
[2023-12-01] MEDS: LoSARTan 50 MG TABLET PO SCH (08:39)
[2023-12-01] MEDS: LACTULOSE 20 GM/30 ML UDCUP PO PRN (10:59)
[2023-12-06 12:07] LABS: STONE COLOR SSR; STONE COMPOSITION SSR; STONE SIZE SSR; STONE WEIGHT SSR
== END 2023-12-01 13:30 | DRG 417 ==
LOC: EDH 11:16 → EDHIP 13:52 → 3AH 16:40
PROVIDERS: ADMIT Hospitalist; ATTEND Hospitalist
PROC: 8E0W4CZ Robotic Assisted Procedure of Trunk Region, Percutaneous Endoscopic Approach (ICD-10-PCS; 2023-11-27)
PROC: BT141ZZ Fluoroscopy of Kidneys, Ureters and Bladder using Low Osmolar Contrast (ICD-10-PCS; 2023-11-27)
PROC: 0FT44ZZ Resection of Gallbladder, Percutaneous Endoscopic Approach (ICD-10-PCS; principal; 2023-11-27 11:26)
DX: K80.62 Calculus of gallbladder and bile duct with acute cholecystitis without obstruction (principal); G93.41 Metabolic encephalopathy; N13.6 Pyonephrosis; E44.1 Mild protein-calorie malnutrition; E87.0 Hyperosmolality and hypernatremia; I50.32 Chronic diastolic (congestive) heart failure; Z68.1 Body mass index [BMI] 19.9 or less, adult; K59.00 Constipation, unspecified; G20.A1 Parkinson's disease without dyskinesia, without mention of fluctuations; F02.80 Dementia in other diseases classified elsewhere, unspecified severity, without behavioral disturbance, psychotic disturbance, mood disturbance, and anxiety; I11.0 Hypertensive heart disease with heart failure; J44.9 Chronic obstructive pulmonary disease, unspecified; F32.A Depression, unspecified; F41.9 Anxiety disorder, unspecified; E78.00 Pure hypercholesterolemia, unspecified; K66.0 Peritoneal adhesions (postprocedural) (postinfection); Z87.891 Personal history of nicotine dependence; Z86.73 Personal history of transient ischemic attack (TIA), and cerebral infarction without residual deficits; Z79.899 Other long term (current) drug therapy; Z87.442 Personal history of urinary calculi; Z79.51 Long term (current) use of inhaled steroids; Z79.1 Long term (current) use of non-steroidal anti-inflammatories (NSAID); Z79.82 Long term (current) use of aspirin
CPT/HCPCS: 36415; 36600; 70450; 71045; 74176; 74400; 76700; 78226; 80048; 80053; 80076; 81001; 82140; 82306; 82360; 82607; 82803; 82948; 83605; 83690; 83735; 84145; 84153; 84484; 85025; 85027; 85610; 85730; 87086; 88304; 93005; A9537; G0378; J0360; J0696; J2250; J2270; J2405; J2704; J2710; J3010; J3475; J3490; J7030; Q9967; A4600; A4649; A4930; A6206; C1769; G0168; J0665